=== PATIENT | female | born 1985 | race Caucasian/White ===

== ENCOUNTER 2020-06-03 08:51 | Emergency (ER) | payer OTHER, MEDICAID ==
[~2020-06-03] VITALS: Ht 162.6 cm; Wt 68.0 kg
[2020-06-03 10:25] LABS: URINE BILIRUBIN NEGATIVE (Negative); URINE BLOOD NEGATIVE (Negative); URINE CLARITY SL CLOUDY; URINE COLOR YELLOW; URINE GLUCOSE-RANDOM NEGATIVE (Negative); URINE KETONES NEGATIVE (Negative); URINE LEUKOCYTES-REFLEX 1+ (Negative); URINE NITRITE-REFLEX NEGATIVE (Negative); URINE PROTEIN NEGATIVE (Negative); URINE SPECIFIC GRAVITY 1.015 (1.005-1.030); URINE UROBILINOGEN 0.2 E.U./dl (0.2-1.0)
[2020-06-03 10:39] LABS: SQUAMOUS >10 Many /LPF (0-3)
[2020-06-03 10:40] LABS: BACTERIA-REFLEX None Seen /HPF (None Seen); URINE RBC None Seen /HPF (0-2); URINE WBC-REFLEX 0-5 Rare /HPF (0-5)
[2020-06-03 10:40] LABS: ABSOLUTE EOSINOPHILS 0.1 thou/uL (0.0-0.7); ABSOLUTE LYMPHOCYTES 1.4 thou/uL (0.8-5.3); ABSOLUTE MONOCYTES 0.3 thou/uL (0.0-1.2); BASOPHILS 0.4 %; EOSINOPHILS 1.1 %; HEMATOCRIT 40.4 % (37.0-47.0); HEMOGLOBIN 13.8 gm/dL (12.0-15.0); LYMPHOCYTES 29.1 %; MCH 30.1 pg (26.0-34.0); MCHC 34.2 g/dL (28.0-37.0); MPV 7.9 fl. (7.2-11.1); NUCLEATED RBCS 0 /100WBC; PLATELET COUNT* 257 thou/uL (150-400); POLYS 63.4 %; RBC 4.59 mil/uL (4.20-5.00); RDW-CV 14.3 % (10.5-14.5); WBC 4.7 thou/uL (4.0-11.0)
[2020-06-03 10:41] LABS: CASTS None Seen /LPF (None Seen); CRYSTALS None Seen /LPF (None Seen); MUCUS None Seen strn/LPF (None Seen)
[2020-06-03 10:48] LABS: CREATININE 0.8 mg/dL (0.6-1.3); POTASSIUM 3.9 mmol/L (3.5-5.1)
[2020-06-03 10:53] LABS: ALBUMIN 4.3 g/dL (3.4-5.0); TOTAL BILIRUBIN 0.8 mg/dL (<0.1-1.0); TOTAL PROTEIN 8.6 g/dL (6.4-8.2)
[2020-06-03] MEDS ORDERED: DOXYCYCLINE 10100 M2 PO (13:48)
[2020-06-03] MEDS ORDERED: ONDANSETRON HCL4 M2 PO (13:48)
[2020-06-03] MEDS ORDERED: VENTOLIN HFA 1818 GM INH (13:48)
[2020-06-03 14:19] VITALS: BP 122/70
--- NOTE | 2020-06-03 15:22 | EKG ---
[place] [address] ELECTROCARDIOGRAM REPORT Name: AIDEN THEODORE Room: [facility]#: [id number] Admission: 06/03/20 Attend Phys: Discharge: 06/03/20 Date of : 87 Date of Service: 06/03/20 1043 Report #: [id number] THIS REPORT FOR: //name// [facility] ED Test Date: 2020-06-03 Test Time: 10:43:38 Pat Name: AIDEN THEODORE Department: Room: Gender: F [employer]: : [id number] Requested By: Lacy Newsome Order Number: [id number] MD: Dom Garcia Measurements Intervals [place] Rate: 65 P: 45 TN: 120 QRS: 61 QRSD: 82 T: 23 QT: 408 QTc: 425 Interpretive Statements Sinus rhythm No previous ECG available for comparison Electronically Signed On 06-03-2020 15:22:33 CDT by Dom Garcia [email or web address] <ELECTRONICALLY SIGNED> By: Dom Garcia MD, [facility] 06/03/20 1522 D: [id number] Dom Garcia MD, FACC /EPI
== END 2020-06-03 14:20 | disposition home or self-care (01) ==
LOC: M.ERS 08:51
PROVIDERS: Nurse Practitioner Family
DX: J18.9 Pneumonia, unspecified organism (principal); R42 Dizziness and giddiness; R11.0 Nausea; Z20.828 Contact with and (suspected) exposure to other viral communicable diseases; Z88.2 Allergy status to sulfonamides